=== PATIENT | male | born 1945 | race Caucasian/White ===

== ENCOUNTER 2023-03-30 02:10 | Inpatient (IN) | payer BC, MEDICARE ==
[~2023-03-30] VITALS: Ht 167.6 cm; Wt 65.3 kg
[2023-03-30] VITALS (37 sets, daily range): BP systolic 69–193; BP diastolic 37–133
[2023-03-30 02:30] LABS: ABG BASE EXCESS -4.5 mmol/L; ABG PCO2 61.5 mmHg (35.0-45.0); ABG PO2 63.9 mmHg (75.0-100.0); ABG SITE LEFT RADIAL; ABG TOTAL HEMOGLOBIN 11.7 G/dL (13.5-18.0); COHb 1.3 % (0.5-1.5); MetHb 0.3 % (0.0-1.5); O2Hb 83.4 % (94.0-97.0)
--- NOTE | 2023-03-30 02:35 | NUR ---
Patient placed on Bipap
--- NOTE | 2023-03-30 02:40 | NUR ---
Perineal care done
[2023-03-30] MEDS ORDERED: TORS100T15 PO (02:58)
[2023-03-30] MEDS ORDERED: POLY250017 PO (02:58)
[2023-03-30] MEDS ORDERED: TAMS-3 PO (02:58)
[2023-03-30] MEDS ORDERED: ISOS30TA9 PO (02:58)
[2023-03-30] MEDS ORDERED: DOCU100C36 PO (02:58)
[2023-03-30] MEDS ORDERED: FOLI0.8T23 PO (02:58)
[2023-03-30] MEDS ORDERED: SEVE800T7 PO (02:58)
[2023-03-30] MEDS ORDERED: NIFE-34 PO (02:58)
[2023-03-30] MEDS ORDERED: CARV25TA2 PO (02:58)
[2023-03-30] MEDS ORDERED: PRAV80TA21 PO (02:58)
[2023-03-30] MEDS ORDERED: IPRA3AMP22 IH (02:58)
[2023-03-30] MEDS ORDERED: D-ME473S47 PO (02:58)
[2023-03-30] MEDS ORDERED: HYDR100T27 PO (02:58)
--- NOTE | 2023-03-30 03:00 | NUR ---
Patient's SBP in 200s. Dr Triana notified.
[2023-03-30 03:01] LABS: HEMATOCRIT 32.8 % (36.7-47.1); MEAN CORPUSCULAR HEMOGLOBIN 35.3 uug (23.8-33.4); MEAN CORPUSCULAR VOLUME 106.3 fL (73.0-96.2); PLATELET COUNT (AUTO) 247 K/uL (152-348)
[2023-03-30] MEDS ORDERED: NITROGLYCERIN 0.4 MG/TAB BOTTLE SL ONE ×2 (03:22→03:30)
[2023-03-30] MEDS ORDERED: NITROGLYCERIN IV 250 ML ONE (03:23)
[2023-03-30] MEDS ORDERED: NITROGLYCERIN IV 250 ML IV PRN ×3 (03:30→04:30)
[2023-03-30 03:32] LABS: ALANINE AMINOTRANSFERASE 26 U/L (16-63); ALKALINE PHOSPHATASE 68 U/L (50-136); ASPARTATE AMINOTRANSFERASE 15 U/L (15-37); BILIRUBIN,DIRECT 0.1 mg/dL (0.0-0.2); BILIRUBIN,TOTAL 0.4 mg/dL (0.2-1.0); CARBON DIOXIDE 27 mmol/L (21-32); CHLORIDE 94 mmol/L (98-107); GLUCOSE 170 mg/dL (74-106); POTASSIUM 6.1 mmol/L (3.5-5.1); TOTAL PROTEIN, SERUM 8.4 g/dL (6.4-8.2)
[2023-03-30 03:34] LABS: UREA NITROGEN, BLOOD 117 mg/dL (7-18)
--- NOTE | 2023-03-30 03:45 | NUR ---
Per Dr Triana, start Nitro drip @100mcg/min
[2023-03-30 03:50] LABS: ABG BASE EXCESS -2.4 mmol/L; ABG HCO3 22.1 mmol/L; ABG PCO2 37.3 mmHg (35.0-45.0); ABG PH 7.391 (7.350-7.450); ABG PO2 447.1 mmHg (75.0-100.0); ABG SITE LEFT RADIAL; ABG TOTAL HEMOGLOBIN 11.1 G/dL (13.5-18.0); COHb 0.4 % (0.5-1.5); MetHb 0.3 % (0.0-1.5); O2Hb 98.4 % (94.0-97.0); VENT MODE BIPAP
--- NOTE | 2023-03-30 04:09 | NUR ---
Called [facility] for panel call. Awaiting for Gerard SALAZAR hospitalist to call back
[2023-03-30] MEDS ORDERED: DEXTROSE 50% 50 ML DISP.SYRIN ONE (04:12)
[2023-03-30] MEDS ORDERED: CEFEPIME HCL 1 G VIAL ONE (04:12)
[2023-03-30] MEDS ORDERED: SODIUM POLYSTYRENE SULFONATE 15 G/60 ML LIQUID UDC ONE (04:13)
[2023-03-30] MEDS ORDERED: INSULIN REGULAR, HUMAN 300 UNIT/3 ML VIAL ONE (04:13)
[2023-03-30] MEDS ORDERED: SODIUM POLYSTYRENE SULFONATE 15 G/60 ML LIQUID UDC PO ONE (04:15)
[2023-03-30] MEDS ORDERED: CEFEPIME HCL 1 G in IV DEXTROSE 5% 50 ML IV ONE (04:15)
[2023-03-30] MEDS ORDERED: DEXTROSE 50% 50 ML DISP.SYRIN IV ONE (04:15)
[2023-03-30] MEDS ORDERED: INSULIN REGULAR, HUMAN 300 UNIT/3 ML VIAL IV ONE (04:15)
[2023-03-30] MEDS ORDERED: ALBUTEROL SULFATE 2.5 MG/3 ML NEBU NEB ONE (04:15)
[2023-03-30] MEDS ORDERED: CALCIUM GLUCONATE IV 1 GM in IV DEXTROSE 5% 50 ML IV ONE (04:15)
--- NOTE | 2023-03-30 04:15 | NUR ---
Patient has been accepted by Gerard SALAZAR
[2023-03-30] MEDS ORDERED: CALCIUM GLUCONATE 1 GM/10 ML VIAL IV ONE (04:25)
[2023-03-30] MEDS ORDERED: ACETAMINOPHEN 325 MG TABLET PO PRN (04:30)
[2023-03-30] MEDS ORDERED: REMEDY ESSENTIAL ZINC PASTE 113 GM TP PRN (04:30)
[2023-03-30] MEDS ORDERED: MAGNESIUM HYDROXIDE 30 ML LIQUID UDC PO PRN (04:30)
[2023-03-30] MEDS ORDERED: ONDANSETRON 4 MG/2 ML VIAL IV PRN (04:30)
[2023-03-30] MEDS ORDERED: ALBUTEROL SULFATE 2.5 MG/3 ML NEBU NEB PRN (04:30)
--- NOTE | 2023-03-30 04:30 | NUR ---
called CCU for bed, spoke with Moises PEARSON. Patient assigned to bed 1 CCU
--- NOTE | 2023-03-30 04:50 | NUR ---
Endorsed to Massiel PEARSON - CCU
--- NOTE | 2023-03-30 04:52 | NUR ---
Patient's SBP in 170s. Dr Triana notified. Was told to keep Nitro drip @100mcg/min
--- NOTE | 2023-03-30 05:30 | NUR ---
Pt. admitted to CCU bed 1 , under care of Gerard SALAZAR Belongs List completed Moises RN and Massiel RN aware of patient's arrival
--- NOTE | 2023-03-30 05:35 | NUR ---
Pt is noted on the unit as he is a new admit to the unit from ER with Diagnose SOB and history off BPH, ESRD with Right Forearm AV-Shunt, Depression and HTN as he came from SNF. Sinus Rhythm on the Tele monitor, Rhonchi Lungs sound with BiPAP therapy at 12/5, 20 , FI02 30% and 5, skin dry, warm and intact .Pt is noted on Nitroglycerin gtt at 100mcg with Blood Pressure in the 180s and he is NPO. Pt care continue.
--- NOTE | 2023-03-30 07:23 | NUR ---
Pt care continue as report is given to the AM coming nurse.
--- NOTE | 2023-03-30 08:31 | NUR ---
Pt's daughters' Irena and Brit called for inquire for vaccines record and neither of them are aware of pt's records.
[2023-03-30] MEDS: PANTOPRAZOLE SODIUM 40 MG VIAL IV SCH (08:55)
--- NOTE | 2023-03-30 09:45 | NUR ---
dialysis nurse in the unit to start dialysis.
--- NOTE | 2023-03-30 10:17 | NUR ---
all consulting physicians came to see patient. Cardio, pulmo, and renal.
[2023-03-30] MEDS: hydrALAZINE HCL 50 MG TABLET PO SCH ×3 (10:40→21:16)
[2023-03-30] MEDS: DEXAMETHASONE SOD PHOSPHATE 4 MG INJ IV SCH (10:40)
[2023-03-30] MEDS: CARVEDILOL 25 MG TABLET PO SCH ×2 (10:41→17:54)
[2023-03-30] MEDS: NIFEdipine XL 60 MG TABSR PO SCH ×2 (10:42→17:52)
[2023-03-30] MEDS: HEPARIN SODIUM,PORCINE 5,000 UNITS/ML VIAL SQ SCH ×2 (10:43→20:44)
[2023-03-30] MEDS ORDERED: CALC667T6 PO (10:50)
[2023-03-30] MEDS ORDERED: POLY17PO4 PO (10:50)
[2023-03-30 15:52] LABS: CARBON DIOXIDE 32 mmol/L (21-32); CHLORIDE 95 mmol/L (98-107); CREATININE 4.9 mg/dL (0.6-1.3); GLUCOSE 107 mg/dL (74-106); POTASSIUM 4.3 mmol/L (3.5-5.1); UREA NITROGEN, BLOOD 58 mg/dL (7-18)
[2023-03-30] MEDS ORDERED: DOCUSATE SODIUM 100 MG CAPSULE PO PRN (17:45)
[2023-03-30] MEDS: ATORVASTATIN 20 MG TABLET PO SCH (20:45)
[2023-03-30] MEDS: TAMSULOSIN HCL 0.4 MG CAP.SR.24H PO SCH (20:45)
[2023-03-31] VITALS (9 sets, daily range): BP systolic 93–117; BP diastolic 55–76
--- NOTE | 2023-03-31 02:00 | NUR ---
Stood at bedside to void, with assistance.
[2023-03-31] MEDS ORDERED: IV NORMAL SALINE 250 ML IV PRN (04:00)
[2023-03-31 04:57] LABS: HEMATOCRIT 28.1 % (36.7-47.1); MEAN CORPUSCULAR HEMOGLOBIN 35.4 uug (23.8-33.4); MEAN CORPUSCULAR VOLUME 105.1 fL (73.0-96.2); PLATELET COUNT (AUTO) 154 K/uL (152-348)
[2023-03-31 05:16] LABS: ALANINE AMINOTRANSFERASE 15 U/L (16-63); ALKALINE PHOSPHATASE 52 U/L (50-136); ASPARTATE AMINOTRANSFERASE 17 U/L (15-37); BILIRUBIN,DIRECT 0.1 mg/dL (0.0-0.2); BILIRUBIN,TOTAL 0.5 mg/dL (0.2-1.0); CARBON DIOXIDE 30 mmol/L (21-32); CHLORIDE 95 mmol/L (98-107); CHOLESTEROL 174 mg/dL (<200); CREATININE 6.6 mg/dL (0.6-1.3); GLUCOSE 105 mg/dL (74-106); HDL CHOLESTEROL 91 mg/dL (40-60); MAGNESIUM 2.2 mg/dL (1.8-2.4); POTASSIUM 5.6 mmol/L (3.5-5.1); TRIGLYCERIDES 40 MG/DL (30-150); UREA NITROGEN, BLOOD 73 mg/dL (7-18)
[2023-03-31 05:18] LABS: THYROID STIMULATING HORMONE 0.562 mIU/mL (0.358-3.740)
[2023-03-31 05:28] LABS: PHOSPHOROUS 8.8 mg/dL (2.5-4.9)
[2023-03-31] MEDS: hydrALAZINE HCL 50 MG TABLET PO SCH ×3 (05:34→21:12)
[2023-03-31] MEDS: CEFEPIME HCL 1 G in IV DEXTROSE 5% 50 ML IV SCH (05:34)
--- NOTE | 2023-03-31 05:35 | NUR ---
Dulce Willard B/P 93/59. Addendum: 03/31/23 at 0542 by [facility] IN[facility]IENT RN3 RN Notified Judy BrooksP.
--- NOTE | 2023-03-31 06:45 | NUR ---
JAYCOB transfer to # [phone].
[2023-03-31 07:07] LABS: HEPATITIS B SURFACE AG Negative (Negative)
--- NOTE | 2023-03-31 07:57 | NUR ---
RECEIVED PATIENT FROM ICU WITH 2L VIA NC SATURATING 95% ORIENTED X3. NO SS OF PAIN OR RESPIRATORY DISTRESS. ORIENTED TO ROOM, SEEN BY DR MARSHALL AND DOWNGRADE PATIENT TO TELEMETRY.
[2023-03-31] MEDS: FOLIC ACID/VITAMIN B COMP W-C TABLET PO SCH (09:11)
[2023-03-31] MEDS: PANTOPRAZOLE SODIUM 40 MG VIAL IV SCH (09:11)
[2023-03-31] MEDS: DEXAMETHASONE SOD PHOSPHATE 4 MG INJ IV SCH (09:12)
[2023-03-31] MEDS: HEPARIN SODIUM,PORCINE 5,000 UNITS/ML VIAL SQ SCH ×2 (09:13→20:54)
[2023-03-31] MEDS: NIFEdipine XL 60 MG TABSR PO SCH ×2 (10:57→17:25)
[2023-03-31] MEDS: CARVEDILOL 25 MG TABLET PO SCH ×2 (10:57→17:25)
[2023-03-31] MEDS: ATORVASTATIN 20 MG TABLET PO SCH (20:46)
[2023-03-31] MEDS: TAMSULOSIN HCL 0.4 MG CAP.SR.24H PO SCH (20:46)
[2023-04-01 00:49] VITALS: BP 116/62
[2023-04-01 01:00] VITALS: BP 198/82
--- NOTE | 2023-04-01 04:12 | NUR ---
AAOx2-3 with some periods of confusion. Patient getting dialysis when received. BP elevated. 192/89 On hydralazine 50mg given at as scheduled Will monitor patient. Needs attended. Oliguric. RUE AV shunt intact. Will monitor patient. MARTIN Gee aware.
[2023-04-01] MEDS: CLONIDINE HCL 0.1 MG TABLET PO PRN (04:52)
[2023-04-01 04:53] VITALS: BP 172/71
--- NOTE | 2023-04-01 04:56 | NUR ---
Patient non compliant with the oxygen. On 3L via nasal cannula, pulse ox 96%. Patient takes off oxygen most of the time. patient desats when O2 not on, on RA was 85%. Keep on reminding to keep O2 on. Will monitor patient. Clonidine 0.1 mg given for high blood pressure. All needs attended.
[2023-04-01] MEDS: CEFEPIME HCL 1 G in IV DEXTROSE 5% 50 ML IV SCH (05:09)
[2023-04-01] MEDS: PANTOPRAZOLE SODIUM 40 MG TABLET.DR PO SCH (06:27)
[2023-04-01] MEDS: hydrALAZINE HCL 50 MG TABLET PO SCH ×3 (06:27→22:08)
[2023-04-01 06:49] LABS: HEMATOCRIT 28.4 % (36.7-47.1); MEAN CORPUSCULAR HEMOGLOBIN 35.4 uug (23.8-33.4); PLATELET COUNT (AUTO) 176 K/uL (152-348)
[2023-04-01 06:58] LABS: CARBON DIOXIDE 34 mmol/L (21-32); CHLORIDE 97 mmol/L (98-107); CREATININE 5.7 mg/dL (0.6-1.3); GLUCOSE 109 mg/dL (74-106); POTASSIUM 4.6 mmol/L (3.5-5.1); UREA NITROGEN, BLOOD 57 mg/dL (7-18)
--- NOTE | 2023-04-01 07:30 | NUR ---
MORNING REPORT: 1) NEUROLOGICAL: Patient received awake, alert, but no sign of distress. 2) Pt arousal to touch. 3) PRESSURE AREA CARE: (i) Self turning to prevent further skin breakdown. (ii) Skin remains, clean, dry, and intact. 4) SAFETY: Call light is within reach. Bed in low position, for safety. 5) BREATHING: On RA, no sign of SOB. 6) EATING & DRINKING: Eating & drinking well, tolerated fluids. 7) Will continue to assess, monitor, treat, and evaluate accordingly.
[2023-04-01] MEDS: DEXAMETHASONE SOD PHOSPHATE 4 MG INJ IV SCH (08:46)
[2023-04-01] MEDS: FOLIC ACID/VITAMIN B COMP W-C TABLET PO SCH (08:46)
[2023-04-01] MEDS: NIFEdipine XL 60 MG TABSR PO SCH ×2 (08:47→17:59)
[2023-04-01] MEDS: CARVEDILOL 25 MG TABLET PO SCH ×2 (08:47→17:59)
[2023-04-01] MEDS: LISINOPRIL 20 MG TABLET PO SCH (08:47)
[2023-04-01] MEDS: HEPARIN SODIUM,PORCINE 5,000 UNITS/ML VIAL SQ SCH ×2 (09:04→22:07)
--- NOTE | 2023-04-01 09:16 | NUR ---
FAMILY CALLED: 1) Returned call - daughter [phone] 2) No response - left a message
--- NOTE | 2023-04-01 11:03 | NUR ---
PATIENT DUE DIALYSIS TODAY
[2023-04-01 12:00] VITALS: BP 108/46
--- NOTE | 2023-04-01 14:45 | NUR ---
HD COMPLETION: 1) Completed HD @ 14:45hrs 2) 2 liters removed 3) Vitals BP121/63, P57, Oxygen Sats 100% on 2 liters 4) Patient asleep at the time of this report
--- NOTE | 2023-04-01 15:51 | NUR ---
ROUNDING - PATIENT ASLEEP COMFORTABLY AND NO SIGN OF DISTRESS OBSERVED
[2023-04-01 16:00] VITALS: BP 108/54
--- NOTE | 2023-04-01 18:09 | NUR ---
END OF SHIFT REPORT: 1) No change in condition, no sign of distress 2) Will endorse care accordingly, who will continue to treat patient accordingly.
--- NOTE | 2023-04-01 19:20 | NUR ---
RECEIVED REPORT FROM AM NURSE PATIENT IS ALERT AND ORIENTED X4 PT KEEPS HIS OXYGEN ON AT 3L NC AM NURSE STATES" PT KEPT TAKING OFF 02 WHICH DECREASES HIS PULSE 0XYGEN TO 70'S " PT IS OKAY NOW 02 SAT IS 92% ON 3L NO SIGNS OF DISTRESS NOTED AND DENIES PAIN. WILL CONTINUE TO MONITOR FOR SAFETY AND FALLS
--- NOTE | 2023-04-01 20:08 | NUR ---
RECHECKED PATIENT TEMPERATURE NOW IS 98.5 INSTEAD OF 99.5
[2023-04-01 20:17] VITALS: BP 136/49
[2023-04-01] MEDS: TAMSULOSIN HCL 0.4 MG CAP.SR.24H PO SCH (21:16)
[2023-04-01] MEDS: ATORVASTATIN 20 MG TABLET PO SCH (21:16)
[2023-04-02] VITALS (7 sets, daily range): BP systolic 16–189; BP diastolic 34–64
[2023-04-02] MEDS: PANTOPRAZOLE SODIUM 40 MG TABLET.DR PO SCH (06:29)
[2023-04-02] MEDS: CEFEPIME HCL 1 G in IV DEXTROSE 5% 50 ML IV SCH (06:29)
[2023-04-02] MEDS: hydrALAZINE HCL 50 MG TABLET PO SCH ×3 (06:57→21:51)
[2023-04-02 07:01] LABS: HEMATOCRIT 28.2 % (36.7-47.1); MEAN CORPUSCULAR HEMOGLOBIN 35.2 uug (23.8-33.4); PLATELET COUNT (AUTO) 176 K/uL (152-348)
[2023-04-02 07:26] LABS: CARBON DIOXIDE 32 mmol/L (21-32); CHLORIDE 97 mmol/L (98-107); CREATININE 5.9 mg/dL (0.6-1.3); GLUCOSE 88 mg/dL (74-106); POTASSIUM 4.7 mmol/L (3.5-5.1); UREA NITROGEN, BLOOD 56 mg/dL (7-18)
[2023-04-02 07:28] LABS: MAGNESIUM 2.1 mg/dL (1.8-2.4); PHOSPHOROUS 6.4 mg/dL (2.5-4.9)
--- NOTE | 2023-04-02 07:30 | NUR ---
Right arm AV fistula with good bruit and thrill noted. Hemodialysis yesterday, Tuesday04-01-23.
[2023-04-02] MEDS: CARVEDILOL 25 MG TABLET PO SCH ×2 (08:43→17:41)
[2023-04-02] MEDS: DEXAMETHASONE SOD PHOSPHATE 4 MG INJ IV SCH (08:43)
[2023-04-02] MEDS: LISINOPRIL 20 MG TABLET PO SCH (08:43)
[2023-04-02] MEDS: FOLIC ACID/VITAMIN B COMP W-C TABLET PO SCH (08:43)
[2023-04-02] MEDS: NIFEdipine XL 60 MG TABSR PO SCH ×2 (08:44→17:41)
[2023-04-02] MEDS: HEPARIN SODIUM,PORCINE 5,000 UNITS/ML VIAL SQ SCH ×2 (09:18→21:50)
[2023-04-02] MEDS: CLONIDINE HCL 0.1 MG TABLET PO PRN (12:45)
[2023-04-02] MEDS: ATORVASTATIN 20 MG TABLET PO SCH (21:50)
[2023-04-02] MEDS: TAMSULOSIN HCL 0.4 MG CAP.SR.24H PO SCH (21:50)
[2023-04-03 04:30] VITALS: BP 138/46
[2023-04-03] MEDS: CEFEPIME HCL 1 G in IV DEXTROSE 5% 50 ML IV SCH (05:16)
[2023-04-03] MEDS: hydrALAZINE HCL 50 MG TABLET PO SCH ×3 (06:12→22:01)
[2023-04-03] MEDS: PANTOPRAZOLE SODIUM 40 MG TABLET.DR PO SCH (06:12)
--- NOTE | 2023-04-03 07:30 | NUR ---
REPORT GIVEN TO LILI HOMER
[2023-04-03 07:44] LABS: HEMATOCRIT 26.8 % (36.7-47.1); MEAN CORPUSCULAR HEMOGLOBIN 35.6 uug (23.8-33.4); PLATELET COUNT (AUTO) 137 K/uL (152-348)
[2023-04-03 07:55] LABS: CARBON DIOXIDE 26 mmol/L (21-32); CHLORIDE 97 mmol/L (98-107); GLUCOSE 102 mg/dL (74-106); POTASSIUM 4.9 mmol/L (3.5-5.1)
[2023-04-03 08:00] VITALS: BP 139/42
[2023-04-03 08:26] LABS: UREA NITROGEN, BLOOD 89 mg/dL (7-18)
[2023-04-03 08:27] LABS: CREATININE 8.1 mg/dL (0.6-1.3)
[2023-04-03] MEDS: FOLIC ACID/VITAMIN B COMP W-C TABLET PO SCH (08:54)
[2023-04-03] MEDS: CARVEDILOL 25 MG TABLET PO SCH ×2 (08:54→17:32)
[2023-04-03] MEDS: NIFEdipine XL 60 MG TABSR PO SCH ×2 (08:54→17:31)
[2023-04-03] MEDS: DEXAMETHASONE SOD PHOSPHATE 4 MG INJ IV SCH (08:55)
[2023-04-03] MEDS: LISINOPRIL 20 MG TABLET PO SCH (08:55)
[2023-04-03] MEDS: HEPARIN SODIUM,PORCINE 5,000 UNITS/ML VIAL SQ SCH ×2 (08:56→22:02)
[2023-04-03] MEDS ORDERED: NIFE-34 PO (10:42)
[2023-04-03] MEDS ORDERED: LISI20TA30 PO (10:42)
[2023-04-03] MEDS ORDERED: CARV25TA2 PO (10:42)
[2023-04-03] MEDS ORDERED: HYDR50TA68 PO (10:42)
[2023-04-03 12:00] VITALS: BP 97/52
[2023-04-03 12:58] LABS: EOSINOPHILS % (MANUAL) 1 % (0-8); LYMPHOCYTES % (MANUAL) 29 % (20-40); MONOCYTES % (MANUAL) 9 % (2-10); NEUTROPHILS % (MANUAL) 61 % (42-75)
[2023-04-03 16:00] VITALS: BP 132/53
--- NOTE | 2023-04-03 17:27 | NUR ---
Spoke with Laly the administrative project coordinator at [facility] and she asked me if it was ok to send the patient as she was unable to confirm that they would be able to do HD on the patient on Tuesday. She asked if we could DC the patient on Tuesday morning so that they would be able to confirm the availability of HD spot for a Covid + patient. I called [facility] and he said that he was expecting that they might do that and that we could discharge in the morning. I asked them to call their HD center as early as possible so that we could send him for his regular appt at 1130 if space was available.
[2023-04-03 19:58] VITALS: BP 134/45
[2023-04-03] MEDS: ATORVASTATIN 20 MG TABLET PO SCH (22:00)
[2023-04-03] MEDS: TAMSULOSIN HCL 0.4 MG CAP.SR.24H PO SCH (22:00)
[2023-04-04 04:00] VITALS: BP 135/60
[2023-04-04] MEDS: PANTOPRAZOLE SODIUM 40 MG TABLET.DR PO SCH (06:14)
[2023-04-04 06:25] VITALS: BP 135/60
[2023-04-04] MEDS: hydrALAZINE HCL 50 MG TABLET PO SCH (06:25)
[2023-04-04 07:17] LABS: HEMATOCRIT 29.4 % (36.7-47.1); MEAN CORPUSCULAR HEMOGLOBIN 35.7 uug (23.8-33.4); MEAN CORPUSCULAR VOLUME 105.1 fL (73.0-96.2); PLATELET COUNT (AUTO) 160 K/uL (152-348)
[2023-04-04 07:31] LABS: CARBON DIOXIDE 34 mmol/L (21-32); CHLORIDE 94 mmol/L (98-107); GLUCOSE 100 mg/dL (74-106); POTASSIUM 4.2 mmol/L (3.5-5.1); UREA NITROGEN, BLOOD 73 mg/dL (7-18)
--- NOTE | 2023-04-04 07:36 | NUR ---
Pt received in bed upset for the COVID-19 isolation, Pt stated that we do not have the right to test him for Covid. Pt comfortable able to swallow PO medication and assisted with Po fluids voided once in urinal. Pt with order to be discharge today Ambulance was called spoke with Tamela schedule for [phone], call Edelmira Bee spoke with Chaitanya able to receive pt in room 107. Endorse care to incoming nurse, All belongings with pt at bedside Pt test COVID + ON 04/03/23
[2023-04-04 07:59] LABS: CREATININE 7.7 mg/dL (0.6-1.3)
[2023-04-05] MEDS ORDERED: POLY250017 PO (17:18)
[2023-04-05] MEDS ORDERED: SEVE800T7 PO (17:18)
[2023-04-05] MEDS ORDERED: LISI20TA30 PO (17:18)
[2023-04-05] MEDS ORDERED: ALBU2.5V38 NEB (17:18)
[2023-04-05] MEDS ORDERED: FOLI0.8T23 PO (17:18)
== END 2023-04-04 08:15 | DRG 177 ==
LOC: ER 02:17 → CCU 04:18 → TELE-TD3 03-31 06:40 → TELE3 03-31 08:33 → MEDSURG3 04-03 11:10
PROVIDERS: ADMIT Nurse Practitioner Acute Care; ATTEND Nurse Practitioner Acute Care
PROC: 5A09357 Assistance with Respiratory Ventilation, Less than 24 Consecutive Hours, Continuous Positive Airway Pressure (ICD-10-PCS; principal; 2023-03-30)
PROC: 5A1D70Z Performance of Urinary Filtration, Intermittent, Less than 6 Hours Per Day (ICD-10-PCS; 2023-03-30)
DX: U07.1 COVID-19 (principal); I50.33 Acute on chronic diastolic (congestive) heart failure; J12.82 Pneumonia due to coronavirus disease 2019; J15.6 Pneumonia due to other Gram-negative bacteria; N18.6 End stage renal disease; J96.02 Acute respiratory failure with hypercapnia; J96.01 Acute respiratory failure with hypoxia; I16.9 Hypertensive crisis, unspecified; I13.2 Hypertensive heart and chronic kidney disease with heart failure and with stage 5 chronic kidney disease, or end stage renal disease; Z99.2 Dependence on renal dialysis; E87.5 Hyperkalemia; E83.39 Other disorders of phosphorus metabolism; D63.1 Anemia in chronic kidney disease; N40.0 Benign prostatic hyperplasia without lower urinary tract symptoms; Z95.2 Presence of prosthetic heart valve; Z82.49 Family history of ischemic heart disease and other diseases of the circulatory system; M1A.9XX0 Chronic gout, unspecified, without tophus (tophi); Z79.899 Other long term (current) drug therapy; Z86.59 Personal history of other mental and behavioral disorders
CPT/HCPCS: 36415; 36600; 70030-TC; 71045; 83605; 83735; 84100; 84443; 84484; 85025; 85730; 86140; 86706; 87040; 87340; 90937; 93005; 93307; 94640; 94660; 99082-TC; C9113; G0378; J0610; J0692; J1100; J1644; J1815; J3490; J7040